=== PATIENT | male | born 1945 | race Caucasian/White ===

== ENCOUNTER 2018-07-04 16:22 | Inpatient (IN) | payer MEDICARE ==
[~2018-07-04] VITALS: Ht 170.2 cm; Wt 83.0 kg
--- NOTE | ~2018-07-04 | CON ---
[address] [address] CONSULTATION Name: AURELIOTOVA Estela Room: [facility] IN .R.#: [id number] Admission: 07/04/18 Attend Phys: Mateus Buchanan MD Discharge: Date of : 47 Report #: [id number] THIS REPORT FOR: //name// CC: Gabino Buchanan DATE OF SERVICE: 07/09/2018 REQUESTING PHYSICIAN: Mateus Buchanan MD REASON FOR CONSULTATION: Chronic kidney disease, stage 4. HISTORY OF PRESENT ILLNESS: The patient is a 72-year-old gentleman with medical history significant for chronic kidney disease stage 4, hypertension, coronary artery disease, history of CVA, diabetes mellitus type 2. He used to follow with us, was seen by Dr. Spain 2 years ago; however, he switched the telecommunications analyst in [place]. [place] that is why he seeing that telecommunications analyst. I do not have a value of his creatinine from that telecommunications analyst and we will obtain the records. He is here for rehabilitation due to stroke. He has some gait and balance problem. He was admitted to [facility] in April of this year with left-sided weakness and discoordination and had left FEATURES REPORTER stroke. PAST MEDICAL HISTORY: 1. Chronic kidney disease, stage 4. 2. Hypertension. 3. Diabetes mellitus type 2. 4. History of stroke. 5. Obesity. 6. Coronary artery disease, status post coronary artery bypass graft surgery in the past. 7. Anemia. 8. Peripheral neuropathy. FAMILY HISTORY: Noncontributory. SOCIAL HISTORY: No current tobacco or alcohol abuse. Lives with his . MEDICATIONS: Reviewed. REVIEW OF SYSTEMS: Positive for dyspnea on exertion, some balance problems. He does have [place] [address] CONSULTATION Name: TOVA CAREY Room: [address] IN [facility]#: [id number] Admission: 07/04/18 Attend Phys: Mateus Buchanan MD Discharge: Date of : 47 Report #: [id number] Rest of the systems reviewed and negative. PHYSICAL EXAMINATION: GENERAL: Awake, alert, oriented. VITAL SIGNS: Reviewed. HEENT: Pupils round. NECK: Fatty. LUNGS: Clear to auscultation bilaterally. CARDIOVASCULAR: Regular rate. ABDOMEN: Obese, soft. LOWER EXTREMITIES: No edema and Queen is in place. LABORATORY DATA: Report revealed serum sodium of 137, potassium 4.9, chloride 101, carbon dioxide 26, BUN 66, creatinine 3.0. MEDICATIONS IN THE HOSPITAL: He is on insulin, Ranexa, Mucinex, multivitamins, Claritin, Imdur, fish oil, Zetia, aspirin, fenofibrate, p.r.n. nitroglycerin, Flomax, lisinopril 40 mg a day, Humalog, Coreg, Lipitor, and Norvasc. ASSESSMENT: 1. Chronic kidney disease, stage 4. 2. Diabetes mellitus type 2. 3. Hypertension. 4. Hyperlipidemia. 5. Coronary artery disease. 6. Morbid obesity. 7. History of stroke. PLAN: Obtain records from his telecommunications analyst in [place]. Follow his blood pressure and labs closely. Blood pressure is well controlled now. We will follow his potassium as well. His potassium is 4.9, now. Thank you very much for asking my opinion on chronic kidney disease. By: [id number] Valle MD /GER
[2018-07-04] MEDS ORDERED: PLAVIX 75 MG TA75 MG PO (19:41)
[2018-07-04] MEDS ORDERED: GUAIFENESIN DM1 EACH PO (19:44)
[2018-07-04] MEDS ORDERED: NOVOLOG FL100 UNIT/M SUBQ (19:47)
[2018-07-04] MEDS ORDERED: LANTUS SOL100 UNIT/1 SUBQ (19:50)
[2018-07-04] MEDS ORDERED: MAG DELAY70 MG PO (19:52)
[2018-07-04] MEDS ORDERED: FLOMAX0.4 MG PO (19:53)
[2018-07-04] MEDS ORDERED: NORVASC10 MG PO (19:54)
[2018-07-04] MEDS ORDERED: LIPITOR80 MG PO (19:56)
[2018-07-04] MEDS ORDERED: COREG25 MG PO (19:57)
[2018-07-04] MEDS ORDERED: LISINOPRIL40 MG PO (20:00)
[2018-07-04] MEDS ORDERED: LISINOPRIL10 MG PO (20:09)
[2018-07-05 01:06] LABS: URINE BILIRUBIN NEGATIVE (Negative); URINE BLOOD NEGATIVE (Negative); URINE CLARITY CLEAR; URINE COLOR YELLOW; URINE GLUCOSE-RANDOM TRACE (Negative); URINE KETONES NEGATIVE (Negative); URINE LEUKOCYTES-REFLEX NEGATIVE (Negative); URINE NITRITE-REFLEX NEGATIVE (Negative); URINE PROTEIN 1+ (Negative); URINE UROBILINOGEN 0.2 E.U./dl (0.2-1.0)
[2018-07-05 04:40] LABS: HEMATOCRIT 36.4 % (42.0-52.0); HEMOGLOBIN 12.3 gm/dL (14.0-18.0); MCH 28.8 pg (26.0-34.0); MCHC 33.7 g/dL (28.0-37.0); MCV 85.5 fL (80.0-100.0); MPV 8.9 fl. (7.2-11.1); RBC 4.26 mil/uL (4.50-6.00); RDW-CV 15.2 % (10.5-14.5)
[2018-07-05 04:56] LABS: CALCIUM 8.9 mg/dL (8.5-10.1); POTASSIUM 4.6 mmol/L (3.5-5.1)
[2018-07-05 07:15] VITALS: BP 130/66
[2018-07-05 19:53] VITALS: BP 156/67
[2018-07-06] MEDS ORDERED: ASPIRIN EC81 M1 PO (06:46)
[2018-07-06] MEDS ORDERED: ZETIA10 MG PO (06:47)
[2018-07-06] MEDS ORDERED: ALLEGRA ALLERG180 MG PO (06:48)
[2018-07-06] MEDS ORDERED: IMDUR 60 MG TAB60 M1 PO (06:49)
[2018-07-06] MEDS ORDERED: OMEGA-31000 M1 PO (06:50)
[2018-07-06] MEDS ORDERED: RANEXA500 MG PO (06:51)
[2018-07-06] MEDS ORDERED: LOFIBRA PO (07:11)
[2018-07-06 08:00] VITALS: BP 124/62; BP 129/62
[2018-07-06 19:00] VITALS: BP 111/55
[2018-07-07 05:40] LABS: CALCIUM 8.8 mg/dL (8.5-10.1); POTASSIUM 5.1 mmol/L (3.5-5.1)
[2018-07-07 07:59] VITALS: BP 134/62
[2018-07-07 08:00] VITALS: BP 120/72
[2018-07-07 20:00] VITALS: BP 113/56
[2018-07-08 07:15] VITALS: BP 137/61
[2018-07-08 08:00] VITALS: BP 137/61
[2018-07-08 19:53] VITALS: BP 122/53
[2018-07-09 05:14] LABS: CALCIUM 9.4 mg/dL (8.5-10.1); POTASSIUM 4.9 mmol/L (3.5-5.1)
[2018-07-09 08:01] VITALS: BP 123/65
[2018-07-09 20:00] VITALS: BP 118/51
[2018-07-10 05:17] LABS: CALCIUM 8.9 mg/dL (8.5-10.1); PHOSPHORUS* 4.7 mg/dL (2.5-4.9)
[2018-07-10 05:34] LABS: CALCIUM 9.4 mg/dL (8.5-10.1); PHOSPHORUS* 4.6 mg/dL (2.5-4.9); POTASSIUM 4.8 mmol/L (3.5-5.1)
[2018-07-10 08:00] VITALS: BP 132/58
[2018-07-10 19:55] VITALS: BP 129/56
[2018-07-11 05:46] LABS: ALBUMIN 2.8 g/dL (3.4-5.0); CALCIUM 9.4 mg/dL (8.5-10.1); PHOSPHORUS* 4.5 mg/dL (2.5-4.9); POTASSIUM 5.1 mmol/L (3.5-5.1)
[2018-07-11 09:06] VITALS: BP 122/59
[2018-07-11 20:00] VITALS: BP 115/56
[2018-07-11 20:04] VITALS: BP 134/79
[2018-07-12 05:02] LABS: ALBUMIN 2.9 g/dL (3.4-5.0); CALCIUM 9.5 mg/dL (8.5-10.1); CREATININE 2.8 mg/dL (0.6-1.3); PHOSPHORUS* 4.6 mg/dL (2.5-4.9); POTASSIUM 4.9 mmol/L (3.5-5.1)
[2018-07-12 07:52] VITALS: BP 132/64
[2018-07-12 20:01] VITALS: BP 127/67
[2018-07-13 08:00] VITALS: BP 117/66
[2018-07-13 19:56] VITALS: BP 124/60
[2018-07-14 04:14] LABS: ABSOLUTE BASOPHILS 0.1 thou/uL (0.0-0.2); ABSOLUTE EOSINOPHILS 0.3 thou/uL (0.0-0.7); ABSOLUTE LYMPHOCYTES 2.5 thou/uL (0.8-5.3); ABSOLUTE MONOCYTES 0.8 thou/uL (0.0-1.2); ABSOLUTE NEUTROPHILS 5.9 thou/uL (1.6-8.1); BASOPHILS 0.6 %; EOSINOPHILS 2.9 %; HEMATOCRIT 37.8 % (42.0-52.0); HEMOGLOBIN 12.6 gm/dL (14.0-18.0); LYMPHOCYTES 26.2 %; MCH 28.4 pg (26.0-34.0); MCHC 33.4 g/dL (28.0-37.0); MCV 84.9 fL (80.0-100.0); MONOCYTES 8.2 %; MPV 8.6 fl. (7.2-11.1); NUCLEATED RBCS 0 /100WBC; PLATELET COUNT* 206 thou/uL (150-400); POLYS 62.1 %; RBC 4.46 mil/uL (4.50-6.00); RDW-CV 14.9 % (10.5-14.5); WBC 9.5 thou/uL (4.0-11.0)
[2018-07-14 04:24] LABS: CALCIUM 9.2 mg/dL (8.5-10.1); CREATININE 2.7 mg/dL (0.6-1.3); POTASSIUM 4.9 mmol/L (3.5-5.1)
[2018-07-14 09:19] VITALS: BP 122/66
[2018-07-14 19:30] VITALS: BP 127/67
[2018-07-15 04:30] LABS: HEMATOCRIT 38.4 % (42.0-52.0); MCH 28.6 pg (26.0-34.0); MCHC 33.9 g/dL (28.0-37.0); MCV 84.3 fL (80.0-100.0); MPV 8.6 fl. (7.2-11.1); RBC 4.55 mil/uL (4.50-6.00); RDW-CV 14.9 % (10.5-14.5); WBC 13.7 thou/uL (4.0-11.0)
[2018-07-15 04:43] LABS: CALCIUM 9.5 mg/dL (8.5-10.1); CREATININE 2.7 mg/dL (0.6-1.3); MAGNESIUM 1.7 mg/dL (1.8-2.4); POTASSIUM 5.2 mmol/L (3.5-5.1)
[2018-07-15 07:00] VITALS: BP 135/64
[2018-07-15 13:00] VITALS: BP 116/62
[2018-07-15 13:18] LABS: URINE BILIRUBIN NEGATIVE (Negative); URINE BLOOD 3+ (Negative); URINE CLARITY CLEAR; URINE COLOR YELLOW; URINE GLUCOSE-RANDOM NEGATIVE (Negative); URINE KETONES NEGATIVE (Negative); URINE LEUKOCYTES 3+ (Negative); URINE NITRITE POSITIVE (Negative); URINE PROTEIN 2+ (Negative); URINE SPECIFIC GRAVITY >= 1.030 (1.005-1.030); URINE UROBILINOGEN 0.2 E.U./dl (0.2-1.0)
[2018-07-15 13:21] LABS: SQUAMOUS 0-3 Few /LPF (0-3); URINE WBC >25 Many /HPF (0-5)
[2018-07-15 13:22] LABS: CASTS None Seen /LPF (None Seen); CRYSTALS None Seen /LPF (None Seen); MUCUS 0-3 Light strn/LPF (None Seen); URINE RBC 3-10 Few /HPF (0-2)
[2018-07-15 19:36] VITALS: BP 137/69
[2018-07-16 04:48] LABS: ALBUMIN 2.6 g/dL (3.4-5.0); CREATININE 2.6 mg/dL (0.6-1.3); MAGNESIUM 1.8 mg/dL (1.8-2.4); PHOSPHORUS* 3.2 mg/dL (2.5-4.9); POTASSIUM 4.5 mmol/L (3.5-5.1)
[2018-07-16 07:00] VITALS: BP 138/64
[2018-07-16 20:00] VITALS: BP 128/55
[2018-07-17 08:00] VITALS: BP 126/55
[2018-07-17 08:52] VITALS: BP 126/55
[2018-07-17 19:56] VITALS: BP 105/51
[2018-07-18 08:10] VITALS: BP 126/58
[2018-07-18 08:57] VITALS: BP 126/58
[2018-07-18 19:56] VITALS: BP 121/57
[2018-07-19 07:00] VITALS: BP 120/58
[2018-07-19 19:55] VITALS: BP 127/62
[2018-07-20 05:03] LABS: HEMATOCRIT 34.8 % (42.0-52.0); HEMOGLOBIN 11.5 gm/dL (14.0-18.0); MCH 27.8 pg (26.0-34.0); MCV 84.2 fL (80.0-100.0); MPV 8.1 fl. (7.2-11.1); RBC 4.13 mil/uL (4.50-6.00); RDW-CV 14.8 % (10.5-14.5); WBC 10.5 thou/uL (4.0-11.0)
[2018-07-20 05:46] LABS: CREATININE 2.5 mg/dL (0.6-1.3); POTASSIUM 4.2 mmol/L (3.5-5.1)
[2018-07-20 07:45] VITALS: BP 115/63
[2018-07-20 20:00] VITALS: BP 123/63
[2018-07-21 07:51] VITALS: BP 139/69
[2018-07-21 07:56] VITALS: BP 139/69
[2018-07-21 20:00] VITALS: BP 123/58
[2018-07-22 05:26] LABS: CALCIUM 9.4 mg/dL (8.5-10.1); CREATININE 2.2 mg/dL (0.6-1.3); MAGNESIUM 1.8 mg/dL (1.8-2.4); POTASSIUM 4.7 mmol/L (3.5-5.1)
[2018-07-22 07:58] VITALS: BP 127/61
[2018-07-22 19:52] VITALS: BP 114/63
[2018-07-23 10:37] VITALS: BP 110/69
[2018-07-23 14:43] VITALS: BP 110/69
[2018-07-23 14:58] VITALS: BP 110/69
[2018-07-23] MEDS ORDERED: FLOMAX0.4 MG PO (15:17)
[2018-07-23] MEDS ORDERED: PEPCID20 MG PO (15:18)
[2018-07-23] MEDS ORDERED: LANTUS SOL100 UNIT/1 SUBQ (15:19)
[2018-07-23] MEDS ORDERED: THERA M PLUS T1 EAC2 PO (15:20)
[2018-07-23] MEDS ORDERED: NOVOLOG FL100 UNIT/M SUBQ (15:20)
[2018-07-23 15:23] VITALS: BP 110/69
== END 2018-07-23 16:15 | disposition home or self-care (01) | DRG 56 ==
LOC: M.REH 16:22
PROVIDERS: Family Medicine; Internal Medicine; Internal Medicine Nephrology; Nurse Practitioner Adult Health; ADMIT Physical Medicine & Rehabilitation
DX: I69.354 Hemiplegia and hemiparesis following cerebral infarction affecting left non-dominant side (principal); I63.9 Cerebral infarction, unspecified; I21.4 Non-ST elevation (NSTEMI) myocardial infarction; I13.0 Hypertensive heart and chronic kidney disease with heart failure and stage 1 through stage 4 chronic kidney disease, or unspecified chronic kidney disease; I50.22 Chronic systolic (congestive) heart failure; N17.9 Acute kidney failure, unspecified; E87.1 Hypo-osmolality and hyponatremia; N39.0 Urinary tract infection, site not specified; I25.10 Atherosclerotic heart disease of native coronary artery without angina pectoris; E11.42 Type 2 diabetes mellitus with diabetic polyneuropathy; E78.5 Hyperlipidemia, unspecified; K21.9 Gastro-esophageal reflux disease without esophagitis; F32.9 Major depressive disorder, single episode, unspecified; E11.22 Type 2 diabetes mellitus with diabetic chronic kidney disease; D64.9 Anemia, unspecified; E66.01 Morbid (severe) obesity due to excess calories; R27.0 Ataxia, unspecified; H53.2 Diplopia; R33.9 Retention of urine, unspecified; E83.42 Hypomagnesemia; N18.3 Chronic kidney disease, stage 3 (moderate); Z95.1 Presence of aortocoronary bypass graft; Z86.73 Personal history of transient ischemic attack (TIA), and cerebral infarction without residual deficits; Z68.28 Body mass index [BMI] 28.0-28.9, adult; I25.2 Old myocardial infarction; Z88.8 Allergy status to other drugs, medicaments and biological substances; Z79.899 Other long term (current) drug therapy